=== PATIENT | male | born 1970 | race American Indian/Alaskan Native ===

== ENCOUNTER 2020-02-10 07:50 | Emergency (ER) | payer SELFPAY ==
[2020-02-10 08:17] VITALS: BP 137/93
== END 2020-02-10 09:35 | disposition left against medical advice (07) ==
LOC: ED 07:50
DX: R07.9 Chest pain, unspecified (principal); Z53.21 Procedure and treatment not carried out due to patient leaving prior to being seen by health care provider
CPT/HCPCS: 93005